=== PATIENT | male | born 1980 | race Two or more races ===

== ENCOUNTER 2017-11-30 15:47 | Emergency (ER) | payer OTHER ==
[~2017-11-30] VITALS: Ht 172.7 cm; Wt 81.6 kg
[~2017-11-30 15:47] MED LIST: BLEPH-105 ML OP; NKM
--- NOTE | 2017-11-30 17:01 | Emergency Room Report ---
History of Present Illness General Chief Complaint: Lower Extremity Injury Source: Patient Present Illness HPI 37 YO Male presents to the ED c/o left lateral foot pain, tenderness, swelling and bruising after fall last night while drinking. pt. denies hitting his head, denies LOC. states that his only symptoms are at the foot. pt. reports pain exacerbated with weight bearing and walking. denies previous injury to the extremity. Denies numbness tingling or loss of sensation or gross motor movements of the extremities, incontinence of bowel or bladder. Denies CP, Palpitations, LOC, AMS, dizziness, Changes in Vision, weakness or a sudden severe headache. Allergies: Coded Allergies: No Known Allergies (Unverified , 03/04/14) Patient History Past Medical History: see triage record Past Surgical History: none Pertinent Family History: none Social History: Reports: alcohol use Reviewed Nursing Documentation: PMH: Agreed; PSxH: Agreed Nursing Documentation-PMH Hx Hypertension: No Hx Diabetes: No Review of Systems All Other Systems: negative except mentioned in HPI Physical Exam Vital Signs Date Time Temp Pulse Resp B/P (MAP) Pulse Ox O2 Delivery O2 Flow Rate FiO2 11/30/17 16:02 98.2 123 20 155/94 94 Room Air 98.2 Sp02 EP Interpretation: reviewed, normal General Appearance: no apparent distress, alert, GCS 15, non-toxic Head: normocephalic, atraumatic Eyes: bilateral eye normal inspection, bilateral eye PERRL, bilateral eye other - bilateral eyes are bloodshot ENT: hearing grossly normal, normal voice Neck: full range of motion, no bony tend Respiratory: lungs clear, normal breath sounds, speaking full sentences Cardiovascular #1: regular rate, rhythm, no edema, normal capillary refill Musculoskeletal: back normal, gait/station normal, normal range of motion, swelling - left lateral foot, tender - to the lateral portion of the left foot, swelling and bruising noted, no obvious deformity. no significant increased laxity Neurologic: alert, oriented x3, responsive, motor strength/tone normal, sensory intact, speech normal, grossly normal Psychiatric: judgement/insight normal Skin: normal color, no rash, warm/dry, well hydrated, other - bruising lateral left foot. Medical Decision Making PA Attestation Dr. Rosenbaum is my supervising physician whom pt. management has been discussed with. Diagnostic Impression: Primary Impression: Left ankle sprain Qualified Codes: S93.402A - Sprain of unspecified ligament of left ankle, initial encounter ER Course 37 YO Male presents to the ED c/o left lateral foot pain, tenderness, swelling and bruising after fall last night while drinking. pt. denies hitting his head, denies LOC. states that his only symptoms are at the foot. pt. reports pain exacerbated with weight bearing and walking. denies previous injury to the extremity. Denies numbness tingling or loss of sensation or gross motor movements of the extremities, incontinence of bowel or bladder. Denies CP, Palpitations, LOC, AMS, dizziness, Changes in Vision, weakness or a sudden severe headache. Ddx considered but are not limited to Fracture, dislocation, contusion, Sprain/ Strain/Spasm. Vital signs: are WNL, pt. is afebrile H&PE are most consistent with musculoskeletal injury will perform imaging to r/ o fractures/dislocations. ORDERS: - X-ray Left Foot 3 views - negative for fx, Dislocation, or significant soft tissue injury, per preliminary read in ED, and signed by DEZ Madison, my supervising physician has reviewed, and agrees with my interpretation. ED INTERVENTIONS: - lane wrap applied to the left ankle and foot by sap technical architect pt. remains NVI both before and after application. - Pt. declines splint -Pt. declines crutches. DISCHARGE: At this time pt. is stable for d/c to home. Will provide printed patient care instructions, and any necessary prescriptions. Care plan and follow up instructions have been discussed with the patient prior to discharge. Other X-Ray Diagnostic Results Other X-Ray Diagnostic Results : X-Ray ordered: Left Foot # of Views/Limited Vs Complete: 3 View Indication: Pain EP Interpretation: Yes DEZ Xray: Interpretation reviewed, by supervising MD, and agrees with findings. Interpretation: no dislocation, no soft tissue swelling, no fractures Impression: No acute disease Electronically Signed by: Alexandra Madison PA-C Last Vital Signs Date Time Temp Pulse Resp B/P (MAP) Pulse Ox O2 Delivery O2 Flow Rate FiO2 11/30/17 16:02 98.2 123 20 155/94 94 Room Air 98.2 Disposition: HOME, SELF-CARE Condition: Stable Scripts Ibuprofen* (MOTRIN*) 600 Mg Tablet 600 MG ORAL THREE TIMES A DAY, #15 TAB 0 Refills Prov: Alexandra Madison 11/30/17 Referrals: CAROLYN VELEZ (PCP) Patient Instructions: Ankle Sprain Additional Instructions: Take medications as directed. Follow up with a Primary Care Provider in 3-5 days, even if your symptoms have resolved. --Please review list of primary care clinics, if you do not already have a primary care provider Return sooner to ED if new symptoms occur, or current symptoms become worse. - Please note that this Emergency Department Report was dictated using [email or web address] beamer technology software, occasionally this can lead to erroneous entry secondary to interpretation by the dictation equipment. Alexandra Madison Nov 30, 2017 17:01
[2017-11-30] MEDS ORDERED: IBUPROFEN600 MG ORAL (17:02)
[2017-11-30 17:35] VITALS: BP 149/90
--- NOTE | 2017-12-01 09:32 | Diagnostic Imaging Report ---
Indication: Foot pain Technique: 3 views left foot Comparison: none Findings: No acute fractures. No dislocations. The joint spaces are preserved. There is a small plantar spur Impression: No acute process
== END 2017-11-30 18:05 | disposition home or self-care (01) ==
LOC: EMR 16:35
DX: S93.402A Sprain of unspecified ligament of left ankle, initial encounter (principal); W19.XXXA Unspecified fall, initial encounter; Y92.89 Other specified places as the place of occurrence of the external cause
CPT/HCPCS: 99283

== ENCOUNTER 2018-01-16 11:12 | Emergency (ER) | payer OTHER ==
[~2018-01-16] VITALS: Ht 172.7 cm; Wt 77.1 kg
[~2018-01-16 11:12] MED LIST changes: +IBUPROFEN600 MG ORAL
[2018-01-16 11:26] VITALS: BP 152/101
--- NOTE | 2018-01-16 12:11 | Emergency Room Report ---
History of Present Illness General Chief Complaint: General Complaint Source: Patient Present Illness HPI Patient presents with complaints of increased jaundice and his eyes bilaterally He feels that this came on 2 days ago he has also noticed a change in the color of his urine He has been having some nonspecific epigastric and bilateral abdominal pain as well reports some chills Denies any chest pain or shortness of breath he has increased nausea with dry heaving denies any lower abdominal pain or diarrhea patient drinks alcohol occasionally Allergies: Coded Allergies: No Known Allergies (Unverified , 01/16/18) Patient History Past Medical History: see triage record Pertinent Family History: none Reviewed Nursing Documentation: PMH: Agreed; PSxH: Agreed Nursing Documentation-PMH Past Medical History: No Stated History Hx Hypertension: No Hx Diabetes: No Review of Systems All Other Systems: negative except mentioned in HPI Physical Exam Vital Signs Date Time Temp Pulse Resp B/P (MAP) Pulse Ox O2 Delivery O2 Flow Rate FiO2 01/16/18 11:15 98.5 89 17 152/101 95 Room Air 98.4 Sp02 EP Interpretation: reviewed, normal General Appearance: well appearing, no apparent distress Head: normocephalic, atraumatic Eyes: bilateral eye PERRL, bilateral eye EOMI, bilateral eye scleral icterus ENT: hearing grossly normal, normal pharynx, TMs + canals normal, uvula midline Neck: full range of motion, supple, no meningismus, no bony tend Respiratory: lungs clear, normal breath sounds, no rhonchi, no respiratory distress, no retraction, no accessory muscle use Cardiovascular #1: normal peripheral pulses, regular rate, rhythm, no edema, no gallop, no JVD, no murmur Gastrointestinal: normal bowel sounds, non tender, soft, no mass, no organomegaly, non-distended, no guarding, no hernia, no pulsatile mass, no rebound Genitourinary: no CVA tenderness Musculoskeletal: normal inspection Neurologic: oriented x3, responsive, dish washer III-XII nml as tested, motor strength/ tone normal, sensory intact Psychiatric: mood/affect normal Skin: normal color, no rash, warm/dry, palpation normal Lymphatic: normal inspection, no adenopathy Medical Decision Making Diagnostic Impression: Primary Impression: Hepatitis Additional Impressions: Hyperbilirubinemia Pancreatitis ER Course With the history exam and presentation, multiple differentials considered, including but not limited to appendicitis, gastritis, cholecystitis, diverticulitis Patient's total bilirubin including pancreas level are significantly elevated Concerning for possible gallstone pancreatitis Ultrasound however did not show any evidence of gallstones Patient will require further imaging further specialty consultation Admission was requested secondary to insurance purposes patient was requested for transfer and will have continued care Labs Test 01/16/18 11:53 01/16/18 11:55 White Blood Count 8.2 K/UL (4.8-10.8) Red Blood Count 4.38 M/UL (4.70-6.10) Hemoglobin 14.5 G/DL (14.2-18.0) Hematocrit 43.9 % (42.0-52.0) Mean Corpuscular Volume 100 FL (80-99) Mean Corpuscular Hemoglobin 33.2 PG (27.0-31.0) Mean Corpuscular Hemoglobin Concent 33.0 G/DL (32.0-36.0) Red Cell Distribution Width 15.7 % (11.6-14.8) Platelet Count 63 K/UL (150-450) Mean Platelet Volume 8.1 FL (6.5-10.1) Neutrophils (%) (Auto) % (45.0-75.0) Lymphocytes (%) (Auto) % (20.0-45.0) Monocytes (%) (Auto) % (1.0-10.0) Eosinophils (%) (Auto) % (0.0-3.0) Basophils (%) (Auto) % (0.0-2.0) Differential Total Cells Counted 100 Neutrophils % (Manual) 72 % (45-75) Lymphocytes % (Manual) 21 % (20-45) Monocytes % (Manual) 7 % (1-10) Eosinophils % (Manual) 0 % (0-3) Basophils % (Manual) 0 % (0-2) Band Neutrophils 0 % (0-8) Platelet Estimate Decreased Platelet Morphology Normal Red Blood Cell Morphology Normal Sodium Level 134 MMOL/L (136-145) Potassium Level 3.5 MMOL/L (3.5-5.1) Chloride Level 99 MMOL/L (98-107) Carbon Dioxide Level 22 MMOL/L (21-32) Anion Gap 13 mmol/L (5-15) Blood Urea Nitrogen 5 mg/dL (7-18) Creatinine 1.0 MG/DL (0.55-1.30) Estimat Glomerular Filtration Rate > 60 mL/min (>60) Glucose Level 103 MG/DL (74-106) Calcium Level 9.3 MG/DL (8.5-10.1) Total Bilirubin 8.8 MG/DL (0.2-1.0) Direct Bilirubin 7.1 MG/DL (0.0-0.3) Aspartate Amino Transf (AST/SGOT) 523 U/L (15-37) Alanine Aminotransferase (ALT/SGPT) 233 U/L (12-78) Alkaline Phosphatase 439 U/L (46-116) Total Protein 7.2 G/DL (6.4-8.2) Albumin 3.1 G/DL (3.4-5.0) Globulin 4.1 g/dL Albumin/Globulin Ratio 0.8 (1.0-2.7) Lipase 1923 U/L (73-393) Urine Color Yellow Urine Appearance Clear Urine pH 8 (4.5-8.0) Urine Specific [place] 1.010 (1.005-1.035) Urine Protein 1+ (NEGATIVE) Urine Glucose (UA) Negative (NEGATIVE) Urine Ketones Negative (NEGATIVE) Urine Occult Blood 2+ (NEGATIVE) Urine Nitrite Negative (NEGATIVE) Urine Bilirubin 2+ (NEGATIVE) Urine Ictotest Positive (NEGATIVE) Urine Urobilinogen 4 MG/DL (NORMAL) Urine Leukocyte Esterase 1+ (NEGATIVE) Urine RBC 2-4 /HPF (0 - 0) Urine WBC 0-2 /HPF (0 - 0) Urine Squamous Epithelial Cells Occasional /LPF Urine Bacteria Occasional /HPF (NONE) CT/MRI/US Diagnostic Results CT/MRI/US Diagnostic Results : Impression abdominal ultrasoundIMPRESSION: * Limited exam with lack of visualization of the pancreas and portions of the abdominal aorta due to overlying bowel gas. * Diffusely increased hepatic echogenicity most commonly related to hepatic steatosis. Additional hepatocellular diseases should be excluded clinically. * No cholelithiasis or gallbladder sludge. * No appreciable biliary ductal dilatation. * Echogenic focus in the right kidney may represent nonobstructing stone versus prominent renal sinus fat. No evidence of hydronephrosis bilaterally. Last Vital Signs Date Time Temp Pulse Resp B/P (MAP) Pulse Ox O2 Delivery O2 Flow Rate FiO2 01/16/18 11:26 98.4 89 17 152/101 95 Room Air 98.4 Status: improved Disposition: XFER SHT-TRM HOSP Condition: Serious Referrals: Dannie Lyn MD (PCP) Vamshi Hines DO Jan 16, 2018 12:11
[2018-01-16 12:21] LABS: APPEARANCE,URINE CLEAR; BILIRUBIN, URINE 2+ (NEGATIVE); GLUCOSE, URINE (UA) NEGATIVE (NEGATIVE); KETONES,URINE NEGATIVE (NEGATIVE); LEUKOCYTE ESTERASE ,URINE 1+ (NEGATIVE); NITRITE,URINE NEGATIVE (NEGATIVE); PH,URINE 8 (4.5-8.0); PROTEIN,URINE 1+ (NEGATIVE); UROBILINOGEN,URINE 4 MG/DL (NORMAL)
[2018-01-16 12:25] LABS: COLOR,URINE YELLOW
[2018-01-16 12:33] LABS: ANION GAP 13 mmol/L (5-15); BLOOD UREA NITROGEN 5 mg/dL (7-18); CALCIUM 9.3 MG/DL (8.5-10.1); CARBON DIOXIDE 22 MMOL/L (21-32); CHLORIDE 99 MMOL/L (98-107); POTASSIUM 3.5 MMOL/L (3.5-5.1); SODIUM 134 MMOL/L (136-145)
[2018-01-16 12:34] LABS: HEMATOCRIT 43.9 % (42.0-52.0); HEMOGLOBIN 14.5 G/DL (14.2-18.0); MEAN CORPUSCULAR VOLUME 100 FL (80-99); PLATELET COUNT 63 K/UL (150-450); RED BLOOD COUNT 4.38 M/UL (4.70-6.10); RED CELL DISTRIBUTION WIDTH 15.7 % (11.6-14.8); WHITE BLOOD COUNT 8.2 K/UL (4.8-10.8)
[2018-01-16 12:43] LABS: ALANINE AMINOTRANSFERASE 233 U/L (12-78); ALBUMIN 3.1 G/DL (3.4-5.0); ALBUMIN/GLOBULIN RATIO 0.8 (1.0-2.7); ALKALINE PHOSPHATASE 439 U/L (46-116); ASPARTATE AMINO TRANSFERASE 523 U/L (15-37); BILIRUBIN,TOTAL 8.8 MG/DL (0.2-1.0)
[2018-01-16 12:45] LABS: BILIRUBIN,DIRECT 7.1 MG/DL (0.0-0.3)
--- NOTE | 2018-01-16 13:23 | Diagnostic Imaging Report ---
Indication: Abdominal pain Technique: A plantar grayscale and color Doppler imaging of the abdomen. Comparison: No prior abdominal ultrasound available for comparison. Correlation made to CT of the abdomen 03/04/2014 Findings: Pancreas not well visualized due to overlying bowel gas. As such, pancreatic pathologies cannot be excluded. Additionally, portions of the abdominal aorta are obscured by overlying bowel gas. Liver normal in size with the right lobe measuring approximately 17 cm in length. There is diffuse increased hepatic echogenicity most commonly related to hepatic steatosis. Hepatic contour is smooth. No appreciable intrahepatic biliary ductal dilatation. Gallbladder within normal limits. No gallstones or sludge identified. No gallbladder wall thickening or pericholecystic fluid. The common bile duct measures approximately 5 mm in diameter. The right kidney measures 11.3 cm in length. The left kidney measures 7.8 cm in length. Both kidneys demonstrate normal echogenicity. There is no hydronephrosis bilaterally. There is a punctate echogenic focus in the right renal hilum which may represent a nonobstructing stone versus prominent renal sinus fat. The bladder is unremarkable in appearance. Ureteral jets noted. There is a approximately 1 cm simple appearing cysts in the lower pole the left kidney. Spleen is normal in size. There is no ascites. IMPRESSION: * Limited exam with lack of visualization of the pancreas and portions of the abdominal aorta due to overlying bowel gas. * Diffusely increased hepatic echogenicity most commonly related to hepatic steatosis. Additional hepatocellular diseases should be excluded clinically. * No cholelithiasis or gallbladder sludge. * No appreciable biliary ductal dilatation. * Echogenic focus in the right kidney may represent nonobstructing stone versus prominent renal sinus fat. No evidence of hydronephrosis bilaterally.
[2018-01-16 14:20] VITALS: BP 132/84
--- NOTE | 2018-01-16 14:39 | Emergency Room Report ---
History of Present Illness General Chief Complaint: General Complaint Source: Patient Present Illness Allergies: Coded Allergies: No Known Allergies (Unverified , 01/16/18) Nursing Documentation-[facility] Past Medical History: No Stated History Hx Hypertension: No Hx Diabetes: No Physical Exam Vital Signs Date Time Temp Pulse Resp B/P (MAP) Pulse Ox O2 Delivery O2 Flow Rate FiO2 01/16/18 11:15 98.5 89 17 152/101 95 Room Air 98.4 Medical Decision Making Last Vital Signs Date Time Temp Pulse Resp B/P (MAP) Pulse Ox O2 Delivery O2 Flow Rate FiO2 01/16/18 11:26 98.4 89 17 152/101 95 Room Air 98.4 Referrals: Dannie Lyn MD (PCP) Vamshi Hines DO Jan 16, 2018 14:39
[2018-01-16 15:54] VITALS: BP 142/78
[2018-01-16 16:39] VITALS: BP 142/78
== END 2018-01-16 16:40 | disposition short-term general hospital (02) ==
LOC: EMR 11:45
DX: K75.9 Inflammatory liver disease, unspecified (principal); K85.90 Acute pancreatitis without necrosis or infection, unspecified; E80.6 Other disorders of bilirubin metabolism
CPT/HCPCS: 36415; 76700; 80053; 81003; 82248; 83690; 85007; 85025; 99284

== ENCOUNTER 2019-05-17 09:38 | Inpatient (IN) | payer MEDICAID, OTHER ==
[~2019-05-17] VITALS: Ht 172.7 cm; Wt 87.5 kg
[2019-05-17] MEDS ORDERED: [UNRECOGNIZED DRUG - REMARK] ORAL (10:02)
--- NOTE | 2019-05-17 10:09 | NUR ---
ED Nurse Note: Pt walked into ED c/o vomting and wretchigng for past 7 days. Pt says he has vomited/wretching around 15xday. Pt denies pain, but says has abdominal cramps. Pt states hx of hepatitis and pancreatitis. Pt set up on monitor. No acute distress.
[2019-05-17 11:00] LABS: BASOPHILS % (AUTO) 0.7 % (0.0-2.0); HEMATOCRIT 46.8 % (42.0-52.0); LYMPHOCYTES % (AUTO) 19.7 % (20.0-45.0); MEAN CORPUSCULAR VOLUME 93 FL (80-99); MONOCYTES % (AUTO) 6.9 % (1.0-10.0); NEUTROPHILS % (AUTO) 72.7 % (45.0-75.0); PLATELET COUNT 174 K/UL (150-450); RED BLOOD COUNT 5.06 M/UL (4.70-6.10); RED CELL DISTRIBUTION WIDTH 13.2 % (11.6-14.8); WHITE BLOOD COUNT 8.8 K/UL (4.8-10.8)
[2019-05-17 11:05] LABS: APPEARANCE,URINE SLIGHTLY CLOUDY; BILIRUBIN, URINE 1+ (NEGATIVE); COLOR,URINE BROWN; GLUCOSE, URINE (UA) NEGATIVE (NEGATIVE); KETONES,URINE 1+ (NEGATIVE); LEUKOCYTE ESTERASE ,URINE NEGATIVE (NEGATIVE); NITRITE,URINE NEGATIVE (NEGATIVE); PH,URINE 6 (4.5-8.0); PROTEIN,URINE 2+ (NEGATIVE); UROBILINOGEN,URINE 1 MG/DL (0.0-1.0)
[2019-05-17 11:15] LABS: ANION GAP 8 mmol/L (5-15); BLOOD UREA NITROGEN 15 mg/dL (7-18); CALCIUM 8.2 MG/DL (8.5-10.1); CARBON DIOXIDE 28 MMOL/L (21-32); CHLORIDE 91 MMOL/L (98-107); CREATININE 1.3 MG/DL (0.55-1.30); POTASSIUM 3.9 MMOL/L (3.5-5.1); SODIUM 127 MMOL/L (136-145)
[2019-05-17 11:25] LABS: ALBUMIN 3.2 G/DL (3.4-5.0); ALBUMIN/GLOBULIN RATIO 0.8 (1.0-2.7); ALKALINE PHOSPHATASE 190 U/L (46-116); BILIRUBIN,TOTAL 4.7 MG/DL (0.2-1.0)
[2019-05-17 11:30] LABS: BILIRUBIN,DIRECT 3.2 MG/DL (0.0-0.3)
[2019-05-17 11:31] VITALS: BP 157/77
[2019-05-17 11:39] LABS: ALANINE AMINOTRANSFERASE 393 U/L (12-78); ASPARTATE AMINO TRANSFERASE 617 U/L (15-37)
[2019-05-17 12:00] VITALS: BP 135/77
--- NOTE | 2019-05-17 14:00 | Diagnostic Imaging Report ---
Indication: Abnormal liver function tests Technique: Linton-scale and duplex images of the upper abdomen were obtained Comparison: 01/16/2018 Findings: Exam is somewhat limited, technically difficult due to body habitus and overlying bowel gas Gallbladder is unremarkable, without stones, wall thickening, nor pericholecystic fluid. Sonographic Canas's sign is negative. Common bile duct measures 5 mm in diameter. No intrahepatic biliary ductal dilatation. Liver demonstrates diffusely increased echogenicity, consistent with diffuse hepatocellular disease, most likely fatty change. Portal vein and hepatic veins are patent. Pancreas is obscured by bowel gas. Spleen is unremarkable. Left kidney measures 11 cm in length. Right kidney measures 10.1 cm length. Both kidneys demonstrate normal echogenicity. There is no hydronephrosis. There is a small left lower pole renal cyst . Abdominal aorta is partially obscured by bowel gas, visualized portions are non-aneurysmal . Impression: Somewhat limited exam, as described. Note inability to visualize the pancreas Negative for gallstones or dilated bile ducts Liver demonstrates diffusely increased echogenicity, consistent with diffuse hepatocellular disease, most likely fatty change. Incidental finding small left renal cyst
--- NOTE | 2019-05-17 14:10 | NUR ---
ED Nurse Note: Report given to Angel KUO.
--- NOTE | 2019-05-17 14:20 | Emergency Room Report ---
History of Present Illness General Chief Complaint: Nausea, Vomiting, and Diarrhea Source: Patient, Medical Record Present Illness HPI This patient states that for the past several weeks he has had upper abdominal pain and recurrent nausea and vomiting. He states he has been unable to tolerate even fluid. He states his pain waxes and wanes in severity. He states he currently has no pain but feels bloated. He admits to regular alcohol use. He denies drug abuse. He denies fever or chills. He denies chest pain or shortness of breath. He has no other complaints. Allergies: Coded Allergies: No Known Allergies (Unverified , 01/16/18) Patient History Past Medical History: see triage record, other - ETOH abuse Social History: Reports: alcohol use; Denies: smoking, drug use Reviewed Nursing Documentation: PMH: Agreed; PSxH: Agreed Nursing Documentation-PMH Past Medical History: No History, Except For Hx Cardiac Problems: No Hx Hypertension: No Hx Pacemaker: No Hx Asthma: No Hx COPD: No Hx Diabetes: No Hx Cancer: No Hx Gastrointestinal Problems: Yes - Hepatitis, Pancreatitis Hx Dialysis: No History Of Psychiatric Problem: No Hx Neurological Problems: No Hx Cerebrovascular Accident: No Hx Seizures: No Review of Systems All Other Systems: negative except mentioned in HPI Physical Exam Vital Signs Date Time Temp Pulse Resp B/P (MAP) Pulse Ox O2 Delivery O2 Flow Rate FiO2 05/17/19 09:49 98.4 114 18 145/94 (111) 96 Room Air Sp02 EP Interpretation: reviewed, normal General Appearance: no apparent distress, alert, GCS 15, non-toxic Head: normocephalic, atraumatic Eyes: bilateral eye PERRL, bilateral eye scleral icterus ENT: hearing grossly normal, normal pharynx, no angioedema, normal voice Neck: full range of motion, supple/symm/no masses Respiratory: chest non-tender, lungs clear, normal breath sounds, no respiratory distress, no retraction, no accessory muscle use, speaking full sentences Cardiovascular #1: regular rate, rhythm, no edema Gastrointestinal: normal bowel sounds, soft, non-distended, no guarding, no rebound, tenderness - mild TTP in the RUQ and epigastrium Rectal: deferred Musculoskeletal: back normal, normal range of motion, gait/station normal, non- tender Neurologic: alert, motor strength/tone normal, oriented x3, sensory intact, responsive, speech normal Psychiatric: judgement/insight normal, memory normal, mood/affect normal, no suicidal/homicidal ideation Skin: jaundice Medical Decision Making Diagnostic Impression: Primary Impression: Biliary obstruction Additional Impressions: Hepatitis Pancreatitis ER Course This patient has findings on labs that are concerning for biliary obstruction. Differential diagnosis includes hepatitis with co-existing pancreatitis. Choledochocholelithiasis. This patient is admitted for further assessment by gastroenterology and general surgery. He was given IV fluids and admitted for further evaluation treatment. Laboratory Tests Test 05/17/19 09:55 05/17/19 10:20 White Blood Count 8.8 K/UL (4.8-10.8) Red Blood Count 5.06 M/UL (4.70-6.10) Hemoglobin 16.0 G/DL (14.2-18.0) Hematocrit 46.8 % (42.0-52.0) Mean Corpuscular Volume 93 FL (80-99) Mean Corpuscular Hemoglobin 31.7 PG (27.0-31.0) H Mean Corpuscular Hemoglobin Concent 34.2 G/DL (32.0-36.0) Red Cell Distribution Width 13.2 % (11.6-14.8) Platelet Count 174 K/UL (150-450) Mean Platelet Volume 5.6 FL (6.5-10.1) L Neutrophils (%) (Auto) 72.7 % (45.0-75.0) Lymphocytes (%) (Auto) 19.7 % (20.0-45.0) L Monocytes (%) (Auto) 6.9 % (1.0-10.0) Eosinophils (%) (Auto) 0.0 % (0.0-3.0) Basophils (%) (Auto) 0.7 % (0.0-2.0) Sodium Level 127 MMOL/L (136-145) L Potassium Level 3.9 MMOL/L (3.5-5.1) Chloride Level 91 MMOL/L (98-107) L Carbon Dioxide Level 28 MMOL/L (21-32) Anion Gap 8 mmol/L (5-15) Blood Urea Nitrogen 15 mg/dL (7-18) Creatinine 1.3 MG/DL (0.55-1.30) Estimate Glomerular Filtration Rate > 60 mL/min (>60) Glucose Level 143 MG/DL (74-106) H Calcium Level 8.2 MG/DL (8.5-10.1) L Total Bilirubin 4.7 MG/DL (0.2-1.0) H Direct Bilirubin 3.2 MG/DL (0.0-0.3) H Aspartate Amino Transferase (AST) 617 U/L (15-37) H Alanine Aminotransferase (ALT) 393 U/L (12-78) H Alkaline Phosphatase 190 U/L (46-116) H Total Protein 7.0 G/DL (6.4-8.2) Albumin 3.2 G/DL (3.4-5.0) L Globulin 3.8 g/dL Albumin/Globulin Ratio 0.8 (1.0-2.7) L Lipase 574 U/L (73-393) H Serum Alcohol < 3 mg/dL Urine Color Brown Urine Appearance Slightly cloudy Urine pH 6 (4.5-8.0) Urine Specific [place] 1.015 (1.005-1.035) Urine Protein 2+ (NEGATIVE) H Urine Glucose (UA) Negative (NEGATIVE) Urine Ketones 1+ (NEGATIVE) H Urine Blood 5+ (NEGATIVE) H Urine Nitrite Negative (NEGATIVE) Urine Bilirubin 1+ (NEGATIVE) H Urine Ictotest Negative (NEGATIVE) Urine Urobilinogen 1 MG/DL (0.0-1.0) H Urine Leukocyte Esterase Negative (NEGATIVE) Urine RBC 20-30 /HPF (0 - 0) H Urine WBC 0-2 /HPF (0 - 0) Urine Squamous Epithelial Cells Occasional /LPF Urine Bacteria Occasional /HPF (NONE) Urine Opiates Screen Negative (NEGATIVE) Urine Barbiturates Screen Negative (NEGATIVE) Phencyclidine (PCP) Screen Negative (NEGATIVE) Urine Amphetamines Screen Negative (NEGATIVE) Urine Benzodiazepines Screen Negative (NEGATIVE) Urine Cocaine Screen Negative (NEGATIVE) Urine Marijuana (THC) Screen Negative (NEGATIVE) CT/MRI/US Diagnostic Results CT/MRI/US Diagnostic Results : Imaging Test Ordered: US RUQ Impression Impression: Somewhat limited exam, as described. Note inability to visualize the pancreas Negative for gallstones or dilated bile ducts Liver demonstrates diffusely increased echogenicity, consistent with diffuse hepatocellular disease, most likely fatty change. Incidental finding small left renal cyst Last Vital Signs Date Time Temp Pulse Resp B/P (MAP) Pulse Ox O2 Delivery O2 Flow Rate FiO2 05/17/19 12:00 98.0 100 19 135/77 100 Room Air Disposition: ADMITTED INPATIENT Condition: Serious Referrals: Aryan Lyn MD (PCP) Karen Blancas DO May 17, 2019 14:20
--- NOTE | 2019-05-17 14:37 | NUR ---
NURSE NOTES: Received report from Adri KUO, pt a/a/o x4 seating in bed with no signs of distress nor complain of n/v. no skin issues. IV on right AC gauge#20. per report one bolus of NS was given. RN will contact Dr. Arechiga to get admitting orders. call light within reach, bed in lowest position. side rales up x2. family at bed side. I will f/u as needed.
[2019-05-17 14:45] VITALS: BP 146/99
[2019-05-17] MEDS ORDERED: D5 1/2NS 1,000 ML IV SCH (14:46)
[2019-05-17] MEDS ORDERED: Morphine Sulfate 2mg/ml Inj(IV/IM USE ONLY) IVP PRN (15:00)
[2019-05-17] MEDS ORDERED: Nitroglycerin Subl 0.4mg tab SL PRN (15:00)
[2019-05-17] MEDS ORDERED: Miralax 17gm pkt ORAL PRN (15:00)
[2019-05-17 16:00] VITALS: BP 155/93
[2019-05-17] MEDS ORDERED: Omnipaque-300 100ml vial INJ PRN (18:00)
--- NOTE | 2019-05-17 18:11 | History & Physical ---
History and Physical History & Physicial Jean-Paul Arechiga MD May 17, 2019 18:11
[2019-05-17] MEDS: Thiamine 100mg tab ORAL SCH (18:21)
[2019-05-17] MEDS ORDERED: LORazepam 0.5mg tab ORAL PRN ×2 (18:30)
[2019-05-17] MEDS ORDERED: D5 1/2NS w/KCl 20mEq 1,000 ML IV SCH (19:00)
--- NOTE | 2019-05-17 19:30 | NUR ---
NURSE NOTES: Pt received in bed awake, alert able to make needs known, call light within reach, no c/o pain, head of bed elevated, clear liquid diet, will continue to monitor.
--- NOTE | 2019-05-17 19:35 | NUR ---
HAND-OFF: Report given to Zenaida KUO, pt in stable condition. - pt was able to tolerated clear liquid diet with no n/v.
[2019-05-17 20:00] VITALS: BP 149/89
[2019-05-17] MEDS: Heparin 5000 units/ml inj SUBQ SCH (20:59)
--- NOTE | 2019-05-17 21:00 | History and Physical Report ---
DATE OF ADMISSION: 05/17/2019 CHIEF COMPLAINT: Nausea, vomiting, diarrhea. HISTORY OF PRESENT ILLNESS: This is a 38-year-old gentleman with past medical history significant for hypertension, dyslipidemia, alcoholism who has presented to the hospital complaining about nausea, vomiting associated with diarrhea. It has been going on for several weeks. Denies any abdominal pain. He stated that his emesis is nonbiliary, nonbloody emesis. He stated that pain waxed and weaned severely. He feels bloated and he drinks regularly alcohol including whiskey and beer. He denies any substance abuse. He denies any fever or chills. Denies any chest pain or shortness of breath. Shortly after initial evaluation in the emergency, the patient was noted to have abnormal liver function and subsequently the patient was admitted to the hospital with acute dehydration with alcoholic hepatitis as well as acute pancreatitis. PAST MEDICAL HISTORY/PAST SURGICAL HISTORY: Significant for alcoholism, hypertension, dyslipidemia. MEDICATIONS AT HOME: Please refer to medication reconciliation. ALLERGIES: No known drug allergies. SOCIAL HISTORY: The patient drinks alcohol regularly beer and whiskey. Denies any substance abuse. 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 FAMILY HISTORY: Noncontributory. REVIEW OF SYSTEMS: Mostly as above. PHYSICAL EXAMINATION: VITAL SIGNS: On admission, temperature 98.4, pulse of 114, respirations 18, blood pressure 145/94. GENERAL: The patient is awake, responsive, no acute distress. HEAD AND NECK: Pupils are equal and reactive to light. Extraocular muscles intact. Neck was supple. No JVD. LUNGS: Clear. No wheezes or rales. HEART: S1, S2. Tachycardic. No murmur or gallops. ABDOMEN: Soft, nondistended. Tenderness on deep palpation. No rebound tenderness. No fluid shift. EXTREMITIES: No cyanosis, clubbing, or edema. NEUROLOGIC: Cranial nerves II through XII grossly intact. Motor is 5/5 and symmetric. Gait is intact. RECTAL: Refused and deferred. GENITOURINARY: Refused and deferred. PSYCHIATRIC: Mood and affect is intact. LABORATORY DATA: On admission from the ER is significant for sodium 127, potassium 3.9, chloride 91, bicarb 28, BUN 15, creatinine 1.3, glucose is 143, calcium 8.2. Total bilirubin of 4.7, direct bilirubin of 3.2, AST of 617, ALT of 393, alkaline phosphatase was 190. Total protein is 7.0. Albumin is 3.2. Lipase is 574. Urine drug screen is negative. Alcohol level is negative. Urinalysis, +5 blood, +1 ketone, +2 protein, 20 to 30 rbc's. WBC of 8.8, hemoglobin 16, hematocrit 46, platelet is 174. The patient had abdominal ultrasound done, noted to be somewhat limited, inability to visualize pancreas. Negative for gallstones or dilated bile duct. ASSESSMENT: 1. Alcoholism. 2. Dehydration. 3. Hyponatremia. 4. Alcoholic hepatitis. 5. Hypertension. 6. Dyslipidemia. 7. Acute alcoholic pancreatitis. PLAN: 1. Admit the patient to Med/Surg. 2. Start the patient on clear liquid diet. 3. IV hydration. 4. Follow up with alcohol withdrawal precaution. 5. Folic acid. 6. Thiamine. 7. GI consultation with Dr. Ladd. 8. Monitor laboratory in the morning. 9. Code status is Full Code. 10. DVT prophylaxis, heparin subcutaneous. Jean-Paul Arechiga M.D. DR: DESHAUN JOB#: [id number] CC:
[2019-05-18] VITALS: BP 126/81
[2019-05-18 04:00] VITALS: BP 123/84
[2019-05-18 06:12] LABS: BASOPHILS % (AUTO) 1.1 % (0.0-2.0); EOSINOPHILS % (AUTO) 1.7 % (0.0-3.0); HEMATOCRIT 44.9 % (42.0-52.0); LYMPHOCYTES % (AUTO) 34.4 % (20.0-45.0); MEAN CORPUSCULAR VOLUME 94 FL (80-99); MONOCYTES % (AUTO) 5.9 % (1.0-10.0); NEUTROPHILS % (AUTO) 56.9 % (45.0-75.0); PLATELET COUNT 137 K/UL (150-450); RED CELL DISTRIBUTION WIDTH 13.6 % (11.6-14.8); WHITE BLOOD COUNT 6.5 K/UL (4.8-10.8)
[2019-05-18 06:35] LABS: PHOSPHORUS 2.9 MG/DL (2.5-4.9)
[2019-05-18 06:40] LABS: ALBUMIN 2.8 G/DL (3.4-5.0); ALBUMIN/GLOBULIN RATIO 0.8 (1.0-2.7); ALKALINE PHOSPHATASE 179 U/L (46-116); AMYLASE 70 U/L (25-115); ANION GAP 8 mmol/L (5-15); BILIRUBIN,TOTAL 5.3 MG/DL (0.2-1.0); BLOOD UREA NITROGEN 7 mg/dL (7-18); CALCIUM 7.9 MG/DL (8.5-10.1); CARBON DIOXIDE 29 MMOL/L (21-32); CHLORIDE 102 MMOL/L (98-107); CREATININE 1.1 MG/DL (0.55-1.30); POTASSIUM 3.5 MMOL/L (3.5-5.1); SODIUM 139 MMOL/L (136-145)
[2019-05-18 06:44] LABS: BILIRUBIN,DIRECT 3.1 MG/DL (0.0-0.3)
[2019-05-18 06:51] LABS: ALANINE AMINOTRANSFERASE 328 U/L (12-78); ASPARTATE AMINO TRANSFERASE 497 U/L (15-37)
--- NOTE | 2019-05-18 07:20 | NUR ---
NURSE NOTES: Received report from SHIELA Estevez. Patient A&Ox4. On room air, no signs of distress or labored breathing. IV intact, patent, and infusing IV fluids. Bed in lowest position with call light in reach. Will continue with plan of care.
--- NOTE | 2019-05-18 07:44 | NUR ---
HAND-OFF: Report given to SHIELA Shoemaker.
[2019-05-18 08:05] VITALS: BP 140/94
[2019-05-18 08:38] VITALS: BP 140/94
[2019-05-18] MEDS: Thiamine 100mg tab ORAL SCH (08:38)
[2019-05-18] MEDS: Heparin 5000 units/ml inj SUBQ SCH (08:39)
[2019-05-18] MEDS ORDERED: Pantoprazole Inj IVP SCH (09:00)
--- NOTE | 2019-05-18 11:44 | Consultation ---
History of Present Illness General Date patient seen: May 18, 2019 Chief Complaint: Nausea, Vomiting, and Diarrhea Present Illness HPI 38 y/o M with hx of HTN, HLD, alcoholism, hepatitis, pancreatitis presented to ED on 05/17 with several weeks of upper abd pain and recurrent nausea and vomiting; unable to tolerate even fluids. Abd pain waxes and wanes in severity. He admits to regular alcohol use. Emesis is non biliary, non bloody. Denied f/c, CP, SOB Allergies: Coded Allergies: No Known Allergies (Unverified , 01/16/18) Medication History Scheduled PRN [pill], Unknown Dose ORAL NEEDED PRN for upset stomach, (Reported) Discontinued Medications Ibuprofen* (Motrin*), 600 MG ORAL THREE TIMES A DAY Discontinued Reason: Pt stopped taking med No Known Medications* (NKM - No Known Medications*), 0 ., (Reported) Discontinued Reason: Pt stopped taking med Sulfacetamide Sodium (Bleph-10), 3 DROP OP Q6HR Discontinued Reason: Pt stopped taking med Patient History Healthcare decision maker Vianey: [phone] Resuscitation status Full Code Advanced Directive on File No Patient History Narrative Pmhx: as above Shx: Reports: alcohol use; Denies: smoking, drug use. 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 Fhx: non contributory Review of Systems All Other Systems: negative except mentioned in HPI Physical Exam Physical Exam Narrative GENERAL: The patient is awake, responsive, no acute distress. HEAD AND NECK: Pupils are equal and reactive to light. Extraocular muscles intact. Neck was supple. No JVD. LUNGS: Clear. No wheezes or rales. HEART: S1, S2. Tachycardic. No murmur or gallops. ABDOMEN: Soft, nondistended. Tenderness on deep palpation. No rebound tenderness. No fluid shift. EXTREMITIES: No cyanosis, clubbing, or edema. NEUROLOGIC: Cranial nerves II through XII grossly intact. Motor is 5/5 and symmetric. Gait is intact. PSYCHIATRIC: Mood and affect is intact. Last 24 Hour Vital Signs Date Time Temp Pulse Resp B/P (MAP) Pulse Ox O2 Delivery O2 Flow Rate FiO2 05/18/19 09:00 Room Air 05/18/19 08:38 91 140/94 05/18/19 08:05 98.6 91 19 140/94 (109) 99 05/18/19 04:00 97.8 18 123/84 (97) 98 05/18/19 00:00 98.1 89 18 126/81 (96) 99 05/17/19 21:00 Room Air 05/17/19 20:00 98.2 78 18 149/89 (109) 95 05/17/19 18:21 73 155/93 05/17/19 16:00 98.8 73 20 155/93 (113) 98 05/17/19 15:45 Room Air 05/17/19 14:45 98.0 95 18 146/99 (115) 95 05/17/19 14:12 97.9 77 17 123/76 98 Room Air 05/17/19 12:00 98.0 100 19 135/77 100 Room Air Intake and Output 05/17/19 05/18/19 19:00 07:00 Intake Total 1020 ml 1415 ml Balance 1020 ml 1415 ml Intake Oral 20 ml 740 ml IV Total 1000 ml 675 ml # Voids 2 2 # Bowel Movements 1 Laboratory Tests Test 05/18/19 05:20 White Blood Count 6.5 K/UL (4.8-10.8) Red Blood Count 4.80 M/UL (4.70-6.10) Hemoglobin 15.0 G/DL (14.2-18.0) Hematocrit 44.9 % (42.0-52.0) Mean Corpuscular Volume 94 FL (80-99) Mean Corpuscular Hemoglobin 31.2 PG (27.0-31.0) H Mean Corpuscular Hemoglobin Concent 33.3 G/DL (32.0-36.0) Red Cell Distribution Width 13.6 % (11.6-14.8) Platelet Count 137 K/UL (150-450) L Mean Platelet Volume 5.3 FL (6.5-10.1) L Neutrophils (%) (Auto) 56.9 % (45.0-75.0) Lymphocytes (%) (Auto) 34.4 % (20.0-45.0) Monocytes (%) (Auto) 5.9 % (1.0-10.0) Eosinophils (%) (Auto) 1.7 % (0.0-3.0) Basophils (%) (Auto) 1.1 % (0.0-2.0) Activated Partial Thromboplast Time 30 SEC (23-33) Sodium Level 139 MMOL/L (136-145) # Potassium Level 3.5 MMOL/L (3.5-5.1) Chloride Level 102 MMOL/L (98-107) Carbon Dioxide Level 29 MMOL/L (21-32) Anion Gap 8 mmol/L (5-15) Blood Urea Nitrogen 7 mg/dL (7-18) Creatinine 1.1 MG/DL (0.55-1.30) Estimat Glomerular Filtration Rate > 60 mL/min (>60) Glucose Level 141 MG/DL (74-106) H Calcium Level 7.9 MG/DL (8.5-10.1) L Phosphorus Level 2.9 MG/DL (2.5-4.9) Magnesium Level 1.8 MG/DL (1.8-2.4) Total Bilirubin 5.3 MG/DL (0.2-1.0) H Direct Bilirubin 3.1 MG/DL (0.0-0.3) H Aspartate Amino Transf (AST/SGOT) 497 U/L (15-37) H Alanine Aminotransferase (ALT/SGPT) 328 U/L (12-78) H Alkaline Phosphatase 179 U/L (46-116) H Total Protein 6.5 G/DL (6.4-8.2) Albumin 2.8 G/DL (3.4-5.0) L Globulin 3.7 g/dL Albumin/Globulin Ratio 0.8 (1.0-2.7) L Amylase Level 70 U/L (25-115) Lipase 551 U/L (73-393) H Height (Feet): 5 Height (Inches): 8.00 Weight (Pounds): 193 Medications Current Medications Medications (Trade) Dose Ordered Sig/Serena Route PRN Reason Start Time Stop Time Status Last Admin Dose Admin Acetaminophen (Tylenol) 650 mg Q4H PRN ORAL fever 05/17/19 15:00 06/16/19 14:59 Amlodipine Besylate (Norvasc) 5 mg DAILY ORAL 05/17/19 18:00 06/16/19 17:59 05/18/19 08:38 Barium Sulfate (Readi-Cat 2) 450 ml NOW PRN ORAL Radiology Procedure 05/17/19 18:00 05/20/19 17:59 Clonidine HCl (Catapres Tab) 0.1 mg Q4H PRN ORAL SBP> 160 05/17/19 18:00 06/16/19 17:59 Dextrose (Dextrose 50%) 25 ml Q30M PRN IV Hypoglycemia 05/17/19 15:00 06/16/19 14:59 Dextrose (Dextrose 50%) 50 ml Q30M PRN IV Hypoglycemia 05/17/19 15:00 06/16/19 14:59 Dextrose/ Electrolytes 1,000 ml @ 75 mls/hr [id number] IV 05/17/19 19:30 06/16/19 19:29 05/18/19 08:39 Diphenhydramine HCl (Benadryl) 25 mg Q6H PRN ORAL Itching/Pruritis 05/17/19 15:00 06/16/19 14:59 Folic Acid (Folate) 1 mg DAILY ORAL 05/17/19 18:30 06/16/19 18:29 05/18/19 08:38 Heparin Sodium (Porcine) (Heparin 5000 units/ml) 5,000 units EVERY 12 HOURS SUBQ 05/17/19 21:00 06/16/19 20:59 05/17/19 20:59 Iohexol (OMNIPAQUE-300 100ml) 100 ml NOW PRN INJ Radiology Procedure 05/17/19 18:00 05/20/19 17:59 Lorazepam (Ativan) 0.5 mg TIDPRN PRN ORAL ETO withdrawal 05/17/19 18:30 05/24/19 18:29 Lorazepam (Ativan) 0.5 mg TIDPRN PRN ORAL For Anxiety 05/17/19 18:30 05/24/19 18:29 Morphine Sulfate (Morphine Sulfate) 2 mg Q4H PRN IVP severe Pain (Pain Scale 7-10) 05/17/19 15:00 05/24/19 14:59 Nitroglycerin (Ntg) 0.4 mg Q5M X 3 DOSES PRN SL Prn Chest Pain 05/17/19 15:00 06/16/19 14:59 Ondansetron HCl (Zofran) 4 mg Q6H PRN IVP Nausea & Vomiting 05/17/19 15:00 06/16/19 14:59 Pantoprazole (Protonix) 40 mg DAILY IVP 05/18/19 09:00 1/6/20 08:59 05/18/19 08:38 Polyethylene Glycol (Miralax) 17 gm HSPRN PRN ORAL Constipation 05/17/19 15:00 06/16/19 14:59 Temazepam (Restoril) 15 mg HSPRN PRN ORAL Insomnia 05/17/19 15:00 05/24/19 14:59 05/17/19 22:55 Thiamine HCl (Vitamin B1) 100 mg DAILY ORAL 05/17/19 18:30 06/16/19 18:29 05/18/19 08:38 Assessment/Plan Assessment/Plan: Abx: None Assessment: Abdominal pain, nausea and vomiting- 2ry to acute alcoholic hepatitis and pancreatitis- no active infectious process -Abd US: Somewhat limited exam, as described. Note inability to visualize the pancreas. Negative for gallstones or dilated bile ducts. Liver demonstrates diffusely increased echogenicity, consistent with diffuse hepatocellular disease , most likely fatty change. Incidental finding small left renal cyst HTN HLD alcoholism hx of hepatitis hx of pancreatitis Plan: -Continue to monitor off abx -f/u cx -Monitor CBC/CMP, temperatures Thank you for this consultation. Will continue to follow along with you. Discussed with Kelly Arango M.D. May 18, 2019 11:44
--- NOTE | 2019-05-18 11:45 | NUR ---
NURSE NOTES: Patient discharged to home. IV and ID band removed. Discharge protocol followed. Charge nurse aware.
--- NOTE | 2019-05-18 17:15 | Consultation ---
DATE OF CONSULTATION: 05/18/2019 GASTROENTEROLOGY CONSULTATION CONSULTING PHYSICIAN: Meeta Hawkins M.D. REFERRING PHYSICIAN: Jean-Paul Arechiga M.D. CHIEF COMPLAINT: I was asked to see this patient by Dr. Jean-Paul Arechiga for evaluation of abnormal liver tests. HISTORY OF PRESENT ILLNESS: The patient is a pleasant 38-year-old [place]ian man, who comes into the hospital with nausea and vomiting associated with diarrhea. He feels better today. He has been able to tolerate diet. The patient was also noted to have abnormal liver tests, which prompted this consultation. The patient has had a longstanding history of alcoholism and drinks beer and whiskey. According to the computer, he was seen here in 2013, 2018, and now. In all 3 episodes, he had significant elevation in his bilirubin and transaminases. He had a CT scan back in 2013, showing fatty liver disease and also an ultrasound overnight showing the same. The patient states that he was sent to a liver doctor as an outpatient by his primary physician for evaluation. He states some tests were done, but he was told that subsequently things were okay. He states that he feels much better when he stopped drinking, but that is only transient for him. He states that his marital issues drive him to drink heavily. PAST MEDICAL HISTORY: History of alcoholism, hypertension, and hypercholesterolemia. Of note, the patient's medication list at home includes a prescription for Lipitor 40 mg p.o. daily. I advised the patient not to take this medication until his liver problems completely resolve. FAMILY HISTORY: Noncontributory. SOCIAL HISTORY: The patient is . He has 2 children, a son and a daughter. 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 REVIEW OF SYSTEMS: Otherwise negative. PHYSICAL EXAMINATION: GENERAL: Pleasant [place]ian man, seen in his room. HEENT: Normocephalic and atraumatic. NECK: Supple. CHEST: Clear to auscultation. CARDIOVASCULAR: Revealed regular rate. ABDOMEN: Soft and nontender. EXTREMITIES: Revealed no edema. LABORATORY DATA: Notable for total bilirubin of 5.3, AST and ALT of 197 and 328 respectively, with alkaline phosphatase of 179 and lipase of 551. ASSESSMENT: This patient has long-standing alcoholism and also equally long-standing history of marked liver test abnormalities, which are in a pattern typically seen with alcoholic hepatitis with the ALT being lower. The patient was strongly advised to discontinue drinking permanently. His fatty liver may be also contributing to his abnormal liver tests and he would have to lose some weight to treat that process. I have advised the patient that Lipitor can potentially affect his liver function more and he should hold off on taking this medication until his liver problems were rectified. I will check the patient's hepatitis B and C serologies to rule out comorbid liver disease. Ultimately however, the most important action is for the patient to discontinue alcohol use. RECOMMENDATIONS: Per above discussion and per orders written in the chart. Thank you for asking me to participate in the care of this patient. Meeta Hawkins M.D. DR: Dianna JOB#: [id number] CC: JOSE ARMANDO
--- NOTE | 2019-05-19 16:00 | NUR ---
CASE MANAGEMENT: Clinical information (face sheet/ H&P/ER MD notes/consultation notes) faxed to THAI CALDERON @ [phone].
--- NOTE | 2019-05-20 08:30 | Discharge Summary ---
Discharge Summary Discharge Summary _ DATE OF ADMISSION: 05/17/2019 DATE OF DISCHARGE: 05/18/2019 DISCHARGED BY: Dr. Arechiga REASON FOR ADMISSION: 38 years old male with past medical history significant for hypertension, dyslipidemia, alcoholism, presented to the hospital complaining of nausea , vomiting and diarrhea for several weeks. He denied abdominal pain. Emesis reported as nonbloody and non-biliary. Patient felt bloated. Patient drinks alcohol on a regular basis , including whiskey and beer. He denied any illegal street drugs. No fever or chills. No chest pain or shortness of breath. Laboratory work-up revealed no leukocytosis ,sodium 127, glucose 143. Total bilirubin 4.7, direct bilirubin 3.2. AST 617, ALT 393. Albumin 3.2. Lipase 574. Urine toxicology screen was negative. Serum alcohol level was less than 3. Urinalysis revealed no evidence of urinary tract infection. Shortly after initial evaluation in the emergency department patient was noted to have abnormal liver function and subsequently admitted to the hospital with alcoholic hepatitis ,acute dehydration and acute pancreatitis. CONSULTANTS: ID specialist Dr. Borja GI specialist Dr. Hawkins [facility]: Patient admitted to medical surgical floor. Patient started on the IV hydration and clear liquid diet. Alcohol withdrawal precautions were instituted. Patient was started on folic acid and thiamine supplementation. Abdominal ultrasound was negative for gallstones or dilated bile ducts. Liver demonstrated diffusely increased echogenicity consistent with diffuse hepatocellular disease most likely fatty changes LFT were closely monitored. DVT prophylaxis provided. GI specialist followed. Per GI specialist, patient had marked liver test abnormalities, typically seen with alcoholic hepatitis. Patient was advised to discontinue drinking permanently. Fatty liver can also contribute to abnormal liver tests. Patient need to lose some weight to treat that process. Patient was also advised that Lipitor may potentially affect the liver function more , and he should hold off on Lipitor until his liver function test stabilized. Patient will need to have hepatitis panel checked, which can be done as an outpatient. GI prophylaxis provided Per ID specialist abdominal pain with nausea and vomiting were likely secondary to acute alcoholic hepatitis and pancreatitis. No evidence of active active infectious process. ID specialist recommended to monitor patient off antibiotics. Blood pressure was closely monitored and managed with calcium channel kalpana. Clonidine was on board as needed for blood pressure spikes. LFT and lipase remained elevated. AST trended down from 617 down to 497, ALT from 393 down to 328 . Bilirubin remained elevated. Lipase only slightly down to 551. Sodium stabilized with IV hydration and up to normal 139. Renal parameters remained stable all electrolytes stable. Patient was strongly advised on alcohol cessation. Due to rapid and unexpected improvement in patient condition patient was discharged in 1 day. FINAL DIAGNOSES: Acute alcoholic pancreatitis Alcoholic hepatitis ETOH abuse Hypertension Hyperlipidemia Transaminitis Dehydration Hyponatremia-resolved DISCHARGE MEDICATIONS: See Medication Reconciliation list. DISCHARGE INSTRUCTIONS: Patient was discharged home. Follow-up with a primary care provider in 1 week. I have been assigned to dictate discharge summary for this account. I was not involved in the patient's management. Kitty Bailey NP May 20, 2019 08:30
== END 2019-05-18 11:30 | disposition home or self-care (01) | DRG 282 ==
LOC: EMR 10:20 → 3E 12:45 → EDBEDREQ 13:48 → 3E 14:23
DX: K85.20 Alcohol induced acute pancreatitis without necrosis or infection (principal); K70.10 Alcoholic hepatitis without ascites; I10 Essential (primary) hypertension; E86.0 Dehydration; E87.1 Hypo-osmolality and hyponatremia; E78.5 Hyperlipidemia, unspecified; F10.288 Alcohol dependence with other alcohol-induced disorder
CPT/HCPCS: 36415; 76700; 80053; 80307; 81003; 82150; 82248; 83690; 83735; 84100; 85025; 85730; 96361; 96365; 96366; 96375; 99285; G0480; J2405; J7030